=== PATIENT | female | born 1950 | race Caucasian/White ===

== ENCOUNTER 2023-04-25 09:30 | Emergency (ER) | payer MEDICARE, SELFPAY ==
--- NOTE | ~2023-04-25 | XR_ITS ---
EXAMINATION: XR WRIST, LEFT CLINICAL INFORMATION: FOOSH, pain, r/o fx COMPARISON: None available. TECHNIQUE: PA, lateral, and oblique views of the left wrist. FINDINGS: Transverse fracture of the distal radius with dorsal tilt of the articular surface (24 degrees) and loss of inclination of the radial styloid. No appreciable intra-articular extension of articular cortical step-off. No additional fractures are identified. There is abnormal alignment of the carpal bones with dorsal tilt of the lunate and volar tilt of the radius, resulting in a scapholunate angle of 85 degrees. There is radiocarpal osteoarthritis as well as osteoarthritis in the midcarpal joint, suggesting chronic carpal instability, potentially related to a chronic scapholunate ligament injury. 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 Mild to moderate osteoarthritis is also present in the MCP joints. Soft tissues are swollen diffusely. XR/XR wrist LT min 3V IMPRESSION: 1. Transverse fracture of the distal radius with dorsal tilt of the distal fragment. No appreciable intra-articular involvement. 2. 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
--- NOTE | ~2023-04-25 | XR_ITS ---
EXAMINATION: XR wrist LT 2V CLINICAL INFORMATION: Reason for Exam post reduction COMPARISON: Wrist radiographs 04/25/2023 TECHNIQUE: Two views of the wrist XR/XR wrist LT 2V FINDINGS/IMPRESSION: Overlying splinting material obscures fine osseus detail. Redemonstration of a transversely oriented fracture of the distal radius with persistent dorsal angulation of the fracture fragments. Otherwise no significant interval change from recent prior.
[2023-04-25 09:36] VITALS: BP 151/94; PULSE 82; RESP 17; TEMP 36.1; O2SAT 100; BMI 26.5
--- NOTE | 2023-04-25 09:42 | ED_ITS ---
HPI - Extremity Problem General Chief complaint: Extremity Injury, Upper Stated complaint: fall l wrist inj Time Seen by Provider: 04/25/23 09:42 Source: patient Mode of arrival: ambulatory Limitations: no limitations History of Present Illness HPI Narrative: 72 yo female with no known medical history right hand dominant here with left wrist pain after a slip and fall 30 min ago with FOOSH. No head strike or LOC. No AC therapy use. Denies numbness, tingling, weakness of the extremity. Related Data Previous Rx's Medication Instructions Recorded ibuprofen 600 mg tablet 600 mg PO Q8H PRN pain #30 tabs 04/25/23 Allergies Allergy/AdvReac Type Severity Reaction Status Date / Time Unable to Assess Allergy Verified 04/25/23 09:42 Review of Systems Review of Systems: Yes all other systems are reviewed and are negative Constitutional: Constitutional: Reports no additional constitutional complaints, Denies body ache(s), Denies chills, Denies fever(s), Denies headache(s) and Denies weakness Eyes: Eyes: Reports no additional eye complaints and Denies change in vision ENT: Reports system reviewed and no additional complaints, except as documented, Denies dizziness, Denies headache(s), Denies nasal congestion, Denies nasal discharge and Denies neck pain Cardiovascular: Cardiovascular: Reports no additional cardiovascular complaints, Denies chest pain, Denies leg edema and Denies dyspnea Respiratory: Respiratory: Reports no additional respiratory complaints, Denies cough and Denies dyspnea Gastrointestinal: Gastrointestinal: Reports no additional gastrointestinal complaints, Denies abdominal pain, Denies diarrhea, Denies nausea and Denies vomiting Genitourinary: Genitourinary: Reports no additional female genitourinary complaints and Denies urinary incontinence Musculoskeletal: Musculoskeletal: Reports no additional musculoskeletal complaints, Denies back pain, Reports arthralgias, Reports joint swelling, Reports limited range of motion, Denies neck pain, Denies numbness and Denies tingling Integumentary/Breasts: Skin/Breast: Reports system reviewed and no additional complaints, except as docu and Denies rash Neurologic: Reports system reviewed and no additional complaints, except as documented, Denies Abnormal speech present, Denies dizziness, Denies headache(s), Denies numbness, Denies tingling and Denies weakness PMFSH Past Medical History Attestation statement: The following information was validated with the patient. Source: old records reviewed and nursing notes reviewed Social History Social History Advance Directives: No Advance Directives Information Provided: Yes Physical Exam Vital Signs: Vital Signs: Last Vital Signs Temp 97.0 F 04/25/23 09:36 Pulse 82 04/25/23 09:36 Resp 17 04/25/23 09:36 BP 151/94 H 04/25/23 09:36 Pulse Ox 100 04/25/23 09:36 O2 Del Method Room Air 04/25/23 09:36 BMI result Body Mass Index 26.5 Const: General: cooperative, healthy appearing, comfortable and no acute distress Orientation/consciousness: patient oriented x3 Limitations: no limitations HEENT: Head: Yes normal to inspection Ears: hearing grossly normal bilaterally General nose exam: Normal external nose present Face and sinus: Yes normal facial exam Mouth: Normal oral and palatal mucosa present Throat: Yes posterior oropharynx normal Eyes: General: appearance normal, both eyes and all related structures Pupils: Equal, round and reactive pupils present Neck: Neck: Yes normal visual inspection Chest: Chest palpation & inspection: normal inspection of the chest Resp: Effort & Inspection: normal respiratory effort Auscultation: clear to auscultation bilaterally Cardio: Rate: regular rate Rhythm: regular rhythm Peripheral pulses: Peripheral pulses 2+ throughout GI: Inspection: Yes normal to inspection Palpation (GI): Soft to palpation and nontender Auscultation: normal bowel sounds Back/Spine/Pelvis: Thoracic/Lumbar Spine: thoracic and lumbar spine normal to inspection Skin: General skin exam: no rashes or lesions noted Neuro: General: patient oriented x3, no focal motor deficits and normal sensation to monofilament Cranial nerves: Yes Equal, round and reactive pupils present Cognition (Neuro): normal cognition Speech: No Abnormal speech present Gait exam (Neuro): Normal gait present Motor exam (neuro): 5/5 motor strength present throughout Extrem: Other: +swelling to left dorsal wrist/hand spec ifically over the distal radius and base of the 1st digit with limited active flexion/extension of the wrist d/t pain. +snuffbox tenderness. Normal hand/digit active/passive ROM. Normal distal sensation. 2+ radial/ulnar pulses. No TTP over left elbow/left shoulder with full active/passive ROM Course Course Course Narrative: the hematoma block was done at the bedside with Vi MAYES. patient tolerated well. see procedure notes for hematoma block, reduction and splint placement. Reviewed follow-up with the patient. Reviewed worrisome signs and symptoms of when to return to the emergency room. Comfortable plan for discharge home. Medications Administered Discontinued Medications Generic Name Dose Route Start Last Admin Trade Name Pratibha PRN Reason Stop Dose Admin Acetaminophen 975 mg 04/25/23 09:47 04/25/23 10:04 Acetaminophen 325 Mg Tablet PO 04/25/23 09:48 975 mg ONCE ONE Administration Ibuprofen 600 mg 04/25/23 09:47 04/25/23 10:04 Ibuprofen 600 Mg Tablet PO 04/25/23 09:48 600 mg ONCE ONE Administration Lidocaine HCl 2 ml 04/25/23 10:06 04/25/23 10:25 Lidocaine Hcl 1 % Mpf 2 Ml Vial INFILTRATI 04/25/23 10:07 2 ml ONCE ONE Administration Lidocaine HCl 2 ml 04/25/23 10:07 04/25/23 10:25 Lidocaine Hcl 1 % Mpf 2 Ml Vial INFILTRATI 04/25/23 10:08 2 ml ONCE ONE Administration Lidocaine HCl 2 ml 04/25/23 10:07 04/25/23 10:25 Lidocaine Hcl 1 % Mpf 2 Ml Vial INFILTRATI 04/25/23 10:08 2 ml ONCE ONE Administration Lidocaine HCl 2 ml 04/25/23 10:07 04/25/23 10:25 Lidocaine Hcl 1 % Mpf 2 Ml Vial INFILTRATI 04/25/23 10:08 2 ml ONCE ONE Administration Medical Decision Making Medical Decision Making MDM Narrative: 72 yo female with no known medical history right hand dominant here with left wrist pain after a slip and fall 30 min ago with FOOSH. No head strike or LOC. No AC therapy use. Denies numbness, tingling, weakness of the extremity. +swelling to left dorsal wrist/hand specifically over the distal radius and base of the 1st digit with limited active flexion/extension of the wrist d/t pain. +snuffbox tenderness. Normal hand/digit active/passive ROM. Normal distal sensation. 2+ radial/ulnar pulses. No TTP over left elbow/left shoulder with full active/passive ROM WIll check x-rays, APAP/ibuprofen for analgesia ordered. Differential Diagnosis Differential Diagnoses: The differential diagnosis associated with the presentation includes fracture, sprain, dislocation low concern for vascular injury Admission/Observation Consideration of admission/observation: Escalation of care including admission/observation considered No evidence of vascular injury, open fracture to suggest need for immediate orthopedic intervention and admission. Consult Healthcare Provider Management of the patient was discussed with: [employer] I spoke to the orthopedic SUGEY Mitchell. we discussed reduction of versus splinting. She did mention that if we were to splint the patient the patient would need surgical intervention outpatient. We discussed attempting a reduction to potentially avoid surgical intervention. This was discussed with the patient. Shared decision-making to attempt reduction and have patient follow-up in a splint with outpatient orthopedic Independent Interpretation I performed an independent interpretation of an: Plain X-Ray Interpretation: I independently reviewed the initial x-ray and the reduction x-ray and agree with the radiology report Radiology Impression Discussion of test interpretation with radiology: I have reviewed the radiologist's reading. Radiologist Impression: [address] [address] XRay Report Signed Patient: Sera Velasco MR#: [id number] : 1950 Acct:[id number] Age/Sex: 72 / F ADM Date: 04/25/23 Loc: .ED Attending Dr: Ordering Physician: Shell Michelle NP Date of Service: 04/25/23 Procedure(s): XR wrist LT min 3V Accession Number(s): [id number] cc: Physician,None ; Shell Michelle NP~ EXAMINATION: XR WRIST, LEFT CLINICAL INFORMATION: FOOSH, pain, r/o fx COMPARISON: None available. TECHNIQUE: PA, lateral, and oblique views of the left wrist. FINDINGS: Transverse fracture of the distal radius with dorsal tilt of the articular surface (24 degrees) and loss of inclination of the radial styloid. No appreciable intra-articular extension of articular cortical step-off. No additional fractures are identified. There is abnormal alignment of the carpal bones with dorsal tilt of the lunate and volar tilt of the radius, resulting in a scapholunate angle of 85 degrees. There is radiocarpal osteoarthritis as well as osteoarthritis in the midcarpal joint, suggesting chronic carpal instability, potentially related to a chronic scapholunate ligament injury. 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 Mild to moderate osteoarthritis is also present in the MCP joints. Soft tissues are swollen diffusely. XR/XR wrist LT min 3V IMPRESSION: 1. Transverse fracture of the distal radius with dorsal tilt of the distal fragment. No appreciable intra-articular involvement. 2. 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 Prescription Management I considered prescription management with: Pain Medication patient reports sufficient pain control with Motrin and Tylenol. Does not feel that she needs additional analgesia Procedures Nerve Block Nerve Block 1: Local Anesthetic: lidocaine 1% Amount of anesthesia used (mL): 6 Side: left Nerve Blocks: hematoma block Procedure Successful: Yes Patient Tolerated Procedure: well Complications: none Orthopedic Fracture Reduction Fracture #1: Time Out Performed: Yes Side: left Fracture Reduction Location: radius Analgesia: hematoma block Technique: direct manipulation and traction/counter-traction Post Reduction X-rays Demonstrate: acceptable reduction Post-reduction neuro exam: intact Post-reduction vascular exam: intact Splint Applied: Yes Patient Tolerated Procedure: well Orthopedic Splinting/Casting Injury #1: Side: left Upper Extremity Injury Location: wrist Upper Extremity Immobilizer: sugar tong splint Critical Care Time Critical Care Time Critical Care Time: Yes Total Critical Care Time: 45 Attestation: Radial fracture with impaction and angulation requiring reduction at the bedside with hematoma block and discussion with orthopedics. Discharge Plan Discharge Clinical Impression: Distal radial fracture Patient Disposition: Home, Self-Care Instructions: Arm Fracture in Adults (ED), Wrist Fracture in Adults (ED), Splint Care (ED) Additional Instructions: Call orthopedics tomorrow to be seen for a follow-up appointment Keep the splint clean and dry Use sling ONLY when up and walking around Elevate the arm Take ibuprofen as prescribed, supplement with tylenol Prescriptions: New ibuprofen 600 mg tablet 600 mg PO Q8H PRN (Reason: pain) Qty: 30 0RF Referrals: [facility] [place] Orthopedic Surgeons [Provider Group] - 5 days Interventions: ED Discharge Assessment Last Done: 04/25/23 11:12 Discharge Date/Time: 04/25/23 11:15
[2023-04-25] MEDS: Ibuprofen 600 MG TABLET PO (10:04)
[2023-04-25] MEDS: Acetaminophen 325 MG TABLET 975 MG PO (10:04)
[2023-04-25] MEDS: Lidocaine HCl 1 % MPF 2 ML VIAL INFILTRATI ×4 (10:25)
== END 2023-04-25 11:15 | disposition home or self-care (01) ==
PROVIDERS: Emergency Provider Emergency Medicine
DX: S52.502A Unspecified fracture of the lower end of left radius, initial encounter for closed fracture (principal); W01.0XXA Fall on same level from slipping, tripping and stumbling without subsequent striking against object, initial encounter; Y93.9 Activity, unspecified; Y92.9 Unspecified place or not applicable; Y99.9 Unspecified external cause status
CPT/HCPCS: 25605; 29125; 64450; 73100; 73110; 99283; 99285

== ENCOUNTER 2024-10-20 15:26 | Inpatient (IN) | payer MEDICARE, SELFPAY ==
[2024-10-20] VITALS (9 sets, daily range): BP systolic 150–170; BP diastolic 80–97; PULSE 84–107; RESP 12–18; TEMP 36.6–36.8; O2SAT 97–99; BMI 25.1
--- NOTE | ~2024-10-20 | CT_ITS ---
CLINICAL HISTORY: shortness of rbeath, elevated d dimer CT angiography chest with contrast. 3D Postprocessing. Comparison: None Findings: The heart size is normal. RV/LV ratio is normal. Unremarkable thoracic aorta and great vessels. No aneurysm. No acute pulmonary embolus. There is a sliding-type hiatal hernia. The visualized thyroid and mediastinum are otherwise unremarkable. No consolidation or effusion. The upper abdomen is unremarkable. No acute fractures. IMPRESSION: 1. No pulmonary embolus. This document has been electronically signed by: Alberto Carpio MD on 10/20/2024 19:14:06
--- NOTE | 2024-10-20 16:13 | ECG_ITS ---
Test Reason : SYNCOPY Blood Pressure : */* mmHG Vent. Rate : 99 BPM Atrial Rate : 99 BPM P-R Int : 160 ms QRS Dur : 74 ms QT Int : 354 ms P-R-T Axes : 52 -6 48 degrees QTcB Int : 454 ms Normal sinus rhythm Normal ECG No previous ECGs available Referred By: Generic ED Physician Electronically Signed By: LESIA CARDENAS MD
--- NOTE | 2024-10-20 16:15 | ED_ITS ---
HPI - General Adult General Chief complaint: Syncope Stated complaint: dizzy/ head pressure Time Seen by Provider: 10/20/24 17:00 Source: patient, RN notes reviewed and old records reviewed Mode of arrival: EMS Limitations: no limitations History of Present Illness ED Provider: Ramon JACOBS narrative: 74-year-old female who denies any known past medical history presents for evaluation of lightheadedness. Patient reports that she was very active despite her age. She reports that she was out this morning ?chopping wood, stacking it. She reports that she went on a 3 mi walk with her friend which is standard for her She reports that she then went to lunch and had some mimosas. The patient reports that she then had 4 separate episodes where she felt a head fonseca and felt like she was going to pass out. She would not have any chest of breath. She reports that when she called the ambulance due to her symptoms ?they told me my heart rate was jumping around and was as high as 160. ? The patient denies any known cardiac disease Related Data Previous Rx's ?Medication ?Instructions ?Recorded ibuprofen 600 mg tablet 600 mg PO Q8H PRN pain #30 tabs 04/25/23 Allergies Allergy/AdvReac Type Severity Reaction Status Date / Time Unable to Assess Allergy Verified 10/20/24 16:17 Review of Systems 2 Constitutional: Constitutional: Denies body ache(s), Denies chills and Denies fever(s) Eyes: Eyes: Denies blurry vision ENT: Denies vertigo and Reports dizziness Cardiovascular: Cardiovascular: Denies chest pain, Reports rapid heart rate, Reports lightheadedness, Denies radiating jaw, neck or arm pain, Reports palpitations and Denies dyspnea Respiratory: Respiratory: Denies cough and Denies dyspnea Gastrointestinal: Gastrointestinal: Denies abdominal pain, Denies nausea and Denies vomiting Musculoskeletal: Musculoskeletal: Denies back pain Integumentary/Breasts: Skin/Breast: Denies rash Neurologic: Denies vertigo and Reports dizziness Psychiatric: Psychiatric: Denies anxiety Endocrine: Endocrine: Reports palpitations PMFSH Social History Social History Smoked in Last 30 Days: No Use of substances other than those prescribed or required for medical reasons: No Advance Directives: No Advance Directives Information Provided: Yes Do you have a plan to hurt others: No Plan Physical Exam ED Vital Signs: Vital Signs - 24 hr 10/20/24 16:08 10/20/24 16:14 10/20/24 16:46 Temperature 98.2 F Pulse Rate 102 H 102 H 98 Respiratory Rate 17 18 Blood Pressure 152/84 H 152/84 H 152/89 H Pulse Oximetry 98 98 Oxygen Delivery Method Room Air Room Air 10/20/24 16:47 10/20/24 16:47 10/20/24 17:37 Temperature Pulse Rate 101 H 103 H Respiratory Rate Blood Pressure 154/96 H 154/97 H Pulse Oximetry 97 Oxygen Delivery Method Room Air 10/20/24 18:18 Temperature 97.8 F Pulse Rate 92 Respiratory Rate 18 Blood Pressure 150/87 H Pulse Oximetry 97 Oxygen Delivery Method Room Air BMI result Body Mass Index 25.1 Const General: healthy appearing, comfortable, no acute distress, alert and awake Nutritional Appearance: well nourished Orientation/consciousness: patient oriented x3 HENMT Head: Yes normocephalic and Yes atraumatic Eyes Eyelids: Yes eyelids normal Conjunctivae: conjunctivae normal Sclerae: sclerae normal Corneas: corneas normal Pupils: Equal, round and reactive pupils present EOM: EOMs intact bilaterally Neck Neck: Yes full ROM Resp Effort & Inspection: normal respiratory effort, able to speak in complete sentences, no audible wheezes and not labored Auscultation: clear to auscultation bilaterally Cardio Rate: regular rate Rhythm: regular rhythm GI Inspection: No distended Palpation (GI): Soft to palpation, not firm, nontender, no guarding and not rigid Skin General skin exam: no rashes or lesions noted and elasticity normal Neuro General: patient oriented x3 Cranial nerves: Yes Equal, round and reactive pupils present and Yes Bilaterally intact EOM present Cognition (Neuro): normal cognition Extrem Other: Moving all extremities well without any obvious deformities Course Reevaluation(s) Reevaluation #1: Medications Administered Discontinued Medications Generic Name Dose Route Start Last Admin Trade Name Freq PRN Reason Stop Dose Admin Iohexol 100 ml 10/20/24 18:54 10/20/24 18:54 Iohexol 350 Mg/Ml 100 Ml Infus..Btl IV 10/20/24 18:55 65 ml ONCE ONE Administration Medical Decision Making Medical Decision Making MDM Narrative: 74-year-old female presents for evaluation of several episodes of lightheadedness that happened this afternoon after exerting herself with physical activity. Patient reports that she was quite active at baseline and she was active this morning. She reports feeling lightheaded and having a near syncopal episode 4 separate times within a few minutes of each other around lunchtime. She reported feeling ?a head fonseca. She never had any chest pain or shortness of breath. Per the paramedical aide that responded to her call, her heart rate was atrial fibrillation and ?jumping all over the place. ? I was able to view a rhythm strip that appeared to show atrial fibrillation at a rate of 155 beats minute. On arrival to the ED, her EKG shows a sinus rhythm without ectopy or arrhythmia. Her labs are reassuring, I D-dimer was around the age adjusted cut off, I ordered a CT angiography given her arrhythmia and tachycardia, this shows no evidence of PE. The patient does drink alcohol daily, she may have some degree of alcoholic cardiomyopathy. I discussed with Cardiology, Dr. Galarza who recommends admitting the patient overnight for workup in the morning. The patient was not orthostatic Differential Diagnosis Differential Diagnoses: The differential diagnosis associated with the presentation includes Cardiac arrhythmia Lightheadedness Atrial fibrillation Orthostasis Pulmonary embolism Admission/Observation Consideration of admission/observation: Escalation of care including admission/observation considered Consult Healthcare Provider Management of the patient was discussed with: Umbrella Tipper (Cardiology, Dr. Galarza) Lab Data MDM Lab Attestation statement: I reviewed the patient's lab results. No leukocytosis or anemia. Normal platelet count. No electrolyte abnormalities warranting intervention. Troponin 3.0 which is within normal limits 10/20/24 16:31 10/20/24 16:31 Labs: Lab Results 10/20/24 10/20/24 10/20/24 Range/Units 16:31 16:35 16:50 WBC 9.3 (4.8-10.8) X10*3/uL RBC 3.88 L (4.20-5.50) X10*6/uL Hgb 13.3 (12.0-16.0) g/dl Hct 37.3 (37.0-47.0) % MCV 96.1 (80.0-98.0) fL MCH 34.3 H (27.0-33.0) pg MCHC 35.7 H (31.0-35.0) g/dl RDW 12.1 (11.0-16.0) % Plt Count 240 (160-400) X10*3/uL MPV 9.4 (9.4-12.3) fL Immature Gran % (Auto) 0.3 (0.0-0.4) % Neut % (Auto) 85.4 H (45-73) % Lymph % (Auto) 6.6 L (20-40) % Crane % (Auto) 6.6 (2-11) % Eos % (Auto) 0.4 (0-4) % Baso % (Auto) 0.7 (0-2) % Lymph # (Auto) 0.6 L (1.2-4.9) X10*3/uL Crane # (Auto) 0.6 (0.1-1.2) X10*3/uL Eos # (Auto) 0.0 (0.0-0.4) X10*3/uL Baso # (Auto) 0.1 (0.0-0.2) X10*3/uL Abs Immat Gran (auto) 0.03 (0.00-0.03) X10*3/uL Absolute Neuts (auto) 8.0 (2.0-8.3) x10*3/uL Absolute Nucleated RBC 0.000 (0.0-0.012) X10*3/uL Nucleated RBC % (auto) 0.0 (0.0-0.2) /100WBC D-Dimer High Sensitivty NG/ML Sodium 141 (135-145) mmol/L Potassium 3.9 (3.3-5.1) mmol/L Chloride 109 H (96-108) mmol/L Carbon Dioxide 24 (22-29) mmol/L Anion Gap 12 (12-20) BUN 9 (9-16) mg/dL Creatinine 0.65 (0.5-1.4) mg/dL Estim Creat Clear Calc 79.3 Estimated GFR > 60 Random Glucose 113 (60-115) mg/dL Calcium 9.5 (8.4-10.2) mg/dL Total Bilirubin 0.4 (0.0-1.0) mg/dL AST 30 (5-31) U/L ALT 18 (0-31) U/L Alkaline Phosphatase 75 (39-117) U/L Troponin I High Sens 3.0 (<3.5-17.0) ng/L Total Protein 7.2 (6.5-8.0) g/dL Albumin 3.9 (3.5-5.0) g/dL TSH 1.69 (0.32-4.0) uIU/mL Urine Color Yellow Urine Appearance Clear Urine pH 7.5 (5.0-9.0) Ur Specific [place] <= 1.005 (1.005-1.025) Urine Protein Negative (Neg-Trace) mg/dL Urine Glucose (UA) Negative (Negative) mg/dL Urine Ketones Negative (Negative) mg/dL Urine Blood Trace H (Negative) Urine Nitrite Negative (Negative) Ur Leukocyte Esterase Large (3+) H (Negative) Urine RBC 6-10 H (0-2) /HPF Urine WBC 11-20 H (0-5) /HPF Ur Squamous Epith Cells 3-5 (0-2) /HPF Urine Bacteria 4+ (None Seen) Hyaline Casts 0-2 (0-2) /LPF Ethyl Alcohol < 10 mg/dL 10/20/24 Range/Units 17:56 WBC (4.8-10.8) X10*3/uL RBC (4.20-5.50) X10*6/uL Hgb (12.0-16.0) g/dl Hct (37.0-47.0) % MCV (80.0-98.0) fL MCH (27.0-33.0) pg MCHC (31.0-35.0) g/dl RDW (11.0-16.0) % Plt Count (160-400) X10*3/uL MPV (9.4-12.3) fL Immature Gran % (Auto) (0.0-0.4) % Neut % (Auto) (45-73) % Lymph % (Auto) (20-40) % Crane % (Auto) (2-11) % Eos % (Auto) (0-4) % Baso % (Auto) (0-2) % Lymph # (Auto) (1.2-4.9) X10*3/uL Crane # (Auto) (0.1-1.2) X10*3/uL Eos # (Auto) (0.0-0.4) X10*3/uL Baso # (Auto) (0.0-0.2) X10*3/uL Abs Immat Gran (auto) (0.00-0.03) X10*3/uL Absolute Neuts (auto) (2.0-8.3) x10*3/uL Absolute Nucleated RBC (0.0-0.012) X10*3/uL Nucleated RBC % (auto) (0.0-0.2) /100WBC D-Dimer High Sensitivty 328 NG/ML Sodium (135-145) mmol/L Potassium (3.3-5.1) mmol/L Chloride (96-108) mmol/L Carbon Dioxide (22-29) mmol/L Anion Gap (12-20) BUN (9-16) mg/dL Creatinine (0.5-1.4) mg/dL Estim Creat Clear Calc Estimated GFR Random Glucose (60-115) mg/dL Calcium (8.4-10.2) mg/dL Total Bilirubin (0.0-1.0) mg/dL AST (5-31) U/L ALT (0-31) U/L Alkaline Phosphatase (39-117) U/L Troponin I High Sens (<3.5-17.0) ng/L Total Protein (6.5-8.0) g/dL Albumin (3.5-5.0) g/dL TSH (0.32-4.0) uIU/mL Urine Color Urine Appearance Urine pH (5.0-9.0) Ur Specific Buck[place] (1.005-1.025) Urine Protein (Neg-Trace) mg/dL Urine Glucose (UA) (Negative) mg/dL Urine Ketones (Negative) mg/dL Urine Blood (Negative) Urine Nitrite (Negative) Ur Leukocyte Esterase (Negative) Urine RBC (0-2) /HPF Urine WBC (0-5) /HPF Ur Squamous Epith Cells (0-2) /HPF Urine Bacteria (None Seen) Hyaline Casts (0-2) /LPF Ethyl Alcohol mg/dL Independent Interpretation I performed an independent interpretation of an: EKG and Rhythm Strip (Atrial fibrillation with a rate of 155 beats minute.) Interpretation: Normal sinus rhythm with a rate of [address] changes Radiology Impression Discussion of test interpretation with radiology: I have reviewed the radiologist's reading. Radiologist Impression: Findings: The heart size is normal. RV/LV ratio is normal. Unremarkable thoracic aorta and great vessels. No aneurysm. No acute pulmonary embolus. There is a sliding-type hiatal hernia. The visualized thyroid and mediastinum are otherwise unremarkable. No consolidation or effusion. The upper abdomen is unremarkable. No acute fractures. IMPRESSION: 1. No pulmonary embolus. This document has been electronically signed by: Alberto Carpio MD on 10/20/2024 19:14:06 Discharge Plan Discharge Clinical Impression: Cardiac arrhythmia, Episodic lightheadedness Patient Disposition: Admitted As Inpatient Prescriptions: No Action ibuprofen 600 mg tablet 600 mg PO Q8H PRN (Reason: pain) Qty: 30 0RF Print Language: Marshallese
[2024-10-20 16:35] LABS: MANUAL DIFF FLAG NO
[2024-10-20 16:36] LABS: Basophils Absolute Auto 0.1 X10*3/uL (0.0-0.2); Basophils Percent Auto 0.7 % (0-2); Eosinophils Percent Auto 0.4 % (0-4); Hematocrit 37.3 % (37.0-47.0); Hemoglobin 13.3 g/dl (12.0-16.0); Imm Gran Abs Auto 0.03 X10*3/uL (0.00-0.03); Imm Gran Pct Auto 0.3 % (0.0-0.4); Lymphocytes Absolute Auto 0.6 X10*3/uL (1.2-4.9); Lymphocytes Percent Auto 6.6 % (20-40); Mean Corpuscular HGB Conc 35.7 g/dl (31.0-35.0); Mean Corpuscular Hemoglobin 34.3 pg (27.0-33.0); Mean Corpuscular Volume 96.1 fL (80.0-98.0); Mean Platelet Volume 9.4 fL (9.4-12.3); Monocytes Absolute Auto 0.6 X10*3/uL (0.1-1.2); Monocytes Percent Auto 6.6 % (2-11); Neutrophils Percent Auto 85.4 % (45-73); Platelet Count 240 X10*3/uL (160-400); Red Blood Count 3.88 X10*6/uL (4.20-5.50); Red Cell Distribution Width 12.1 % (11.0-16.0); White Blood Count 9.3 X10*3/uL (4.8-10.8)
[2024-10-20 16:51] LABS: Alanine Aminotransferase 18 U/L (0-31); Albumin Level 3.9 g/dL (3.5-5.0); Alkaline Phosphatase 75 U/L (39-117); Anion Gap 12 (12-20); Aspartate Amino Transferase 30 U/L (5-31); Bilirubin Total 0.4 mg/dL (0.0-1.0); Blood Urea Nitrogen 9 mg/dL (9-16); Calcium 9.5 mg/dL (8.4-10.2); Carbon Dioxide 24 mmol/L (22-29); Chloride 109 mmol/L (96-108); Creatinine Clr Calc Pharmacy 79.3; Estimated Glomerular Filt Rate > 60; Glucose Random 113 mg/dL (60-115); Potassium 3.9 mmol/L (3.3-5.1); Sodium 141 mmol/L (135-145); Total Protein 7.2 g/dL (6.5-8.0)
[2024-10-20 17:01] LABS: Appearance Urine Clear; Color Urine Yellow; Glucose Urine UA Negative (Negative); Leukocyte Esterase Urine Large (3+) (Negative); Nitrite Urine Negative (Negative); PH 7.5 (5.0-9.0); Specific Gravity - Urine <= 1.005 (1.005-1.025); UMIC TRIGGER UACC YES; Urine Blood Trace (Negative); Urine Ketones Negative (Negative); Urine Protein Negative (Neg-Trace)
[2024-10-20 17:06] LABS: Bacteria Urine 4+ (None Seen); Hyaline Casts Urine 0-2 /LPF (0-2); UACC Culture Trigger YES
[2024-10-20 18:12] LABS: D Dimer High Sensitivity 328 NG/ML
[2024-10-20 18:28] LABS: TSH reflex Free T4 1.69 uIU/mL (0.32-4.0)
[2024-10-20] MEDS: iohexoL 350 MG/ML 100 ML INFUS..BTL IV (18:54)
[2024-10-20 18:58] LABS: Ethanol < 10 mg/dL
--- NOTE | 2024-10-20 19:50 | P.HPHOSP_ITS ---
History of Present Illness Date of Service: 10/20/24 Chief Complaint: Lightheadedness 74-year-old female with no significant past medical history presented to the hospital with a chief complaint of lightheadedness. Patient mentioned that she was chopping the vertex morning and after that she had a walk and after she came back she felt lightheaded and dizzy. Lasted briefly but the symptoms recurred again. And then has had at least 4 episodes of similar symptoms. Subsequently called the ambulance. When the EMS team came in her heart rate was in 150s and in AFib. Patient denies any palpitations. Denies any chest pain. Denies any shortness with the dyspnea on exertion. Denies any fever chills cough or sputum production. Denies any GI symptoms. Review of all other systems is negative except mentioned above ER course: Per ER team, patient's exam was benign, EKG shows normal sinus rhythm; troponin negative; D-dimer negative; CT chest showed no acute findings. Urinalysis abnormal consistent with UTI. Discussed with cardiology who suggested admission to the hospital for evaluation in the morning. [facility] Social History Smoked in Last 30 Days: No Use of substances other than those prescribed or required for medical reasons: No Advance Directives: No Advance Directives Information Provided: Yes Do you have a plan to hurt others: No Plan Meds Allergies Allergy/AdvReac Type Severity Reaction Status Date / Time Unable to Assess Allergy Verified 10/20/24 16:17 Active Medications: Current Medications Acetaminophen (Acetaminophen 325 Mg Tablet) 650 mg PO Q6H PRN PRN Reason: Pain, Mild 1-3,fever,headache Calcium Carbonate (Calcium Carbonate 750 Mg Tab.Chew) 750 mg PO Q4H PRN PRN Reason: Heartburn Ceftriaxone Sodium (Ceftriaxone Sodium 1 Gm Vial) 1 gm IVPUSH Q24H KISHAN Enoxaparin Sodium (Enoxaparin Sodium 40 Mg/0.4 Ml Syringe) 40 mg SUBCUT Q24H KISHAN Lactated Ringer's (Lr) 1,000 mls @ 100 mls/hr IVCONT .Q10H KISHAN Magnesium Hydroxide (Milk Of Magnesia 30 Ml Oral.Susp) 30 ml PO DAILY PRN PRN Reason: Constipation Melatonin (Melatonin 3 Mg Tablet) 6 mg PO BEDTIME PRN PRN Reason: Insomnia Sodium Chloride (0.9 % Sodium Chloride Flush 3 Ml Syringe) 3 ml IVFLUSH QSHIFT [facility] Physical Exam 2 Vital Signs and Narrative: Vital Signs: Last Vital Signs Temp 98.0 F 10/20/24 19:18 Pulse 107 H 10/20/24 19:18 Resp 12 10/20/24 19:18 BP 169/87 H 10/20/24 19:18 Pulse Ox 99 10/20/24 19:18 O2 Del Method Room Air 10/20/24 19:18 BMI result Body Mass Index 25.1 Results Labs 10/20/24 16:31 10/20/24 16:31 Labs: Laboratory Results - last 24 hr 10/20/24 10/20/24 10/20/24 16:31 16:50 17:56 MCV 96.1 MCH 34.3 H MCHC 35.7 H RDW 12.1 Plt Count 240 MPV 9.4 Immature Gran % (Auto) 0.3 Neut % (Auto) 85.4 H Lymph % (Auto) 6.6 L Ritchie % (Auto) 6.6 Eos % (Auto) 0.4 Baso % (Auto) 0.7 Lymph # (Auto) 0.6 L Ritchie # (Auto) 0.6 Eos # (Auto) 0.0 Baso # (Auto) 0.1 Abs Immat Gran (auto) 0.03 Absolute Neuts (auto) 8.0 Absolute Nucleated RBC 0.000 Nucleated RBC % (auto) 0.0 D-Dimer High Sensitivty 328 Anion Gap 12 Estim Creat Clear Calc 79.3 Estimated GFR > 60 Random Glucose 113 Calcium 9.5 Total Bilirubin 0.4 AST 30 ALT 18 Alkaline Phosphatase 75 Total Protein 7.2 Albumin 3.9 TSH 1.69 Urine Color Yellow Urine Appearance Clear Urine pH 7.5 Ur Specific [place] <= 1.005 Urine Protein Negative Urine Glucose (UA) Negative Urine Ketones Negative Urine Blood Trace H Urine Nitrite Negative Ur Leukocyte Esterase Large (3+) H Urine RBC 6-10 H Urine WBC 11-20 H Ur Squamous Epith Cells 3-5 Urine Bacteria 4+ Hyaline Casts 0-2 Ethyl Alcohol < 10 Assessment and Plan (1) Episodic lightheadedness: Status: Acute Plan 74-year-old female with no significant past medical history presented to the hospital with a chief complaint of lightheadedness. Lightheadedness: Exam nonfocal Likely in setting of new onset AFib with RVR. Improving symptomatically Fall precautions PT/OT when ready for discharge New onset AFib: EMS noted that patient heart rate was in 150s and in AFib. Patient converted back to normal sinus rhythm on arrival to the ER. Cardiology was notified Echocardiogram TSH Telemetry UTI: Continue ceftriaxone. Follow up cultures. DVT prophylaxis: Lovenox Code status: Full code Quality Stroke Does the patient have a stroke diagnosis?: No VTE Prior VTE?: No VTE Risk Level:: Medical - moderate - high VTE Device Contraindication: Treatment Not Indicated VTE Drug Contraindication: N/A - Med Ordered
[2024-10-20 20:24] LABS: Troponin-I High Sensitivity 3.4 ng/L (<3.5-17.0)
[2024-10-20] MEDS: cefTRIAXone sodium 1 GM VIAL IVPUSH (21:06)
[2024-10-20] MEDS: Lactated Ringers 1,000 ML 100 ML IVCONT (21:06)
--- NOTE | 2024-10-20 21:34 | PHA.MEDREC ---
Addendum entered by Ángel Calderon [facility] 10/20/24 21:41: MED REC CHECKED BY [facility] Original Note: Pharmacy Consult ? Medication Reconciliation Pharmacy has completed the medication reconciliation. Patient states she is not on any medications.
--- NOTE | 2024-10-20 23:02 | PC.NURSE ---
Report given to ari Ovalles.
[2024-10-21 00:32] VITALS: BP 149/79; PULSE 119; RESP 12; TEMP 36.6; O2SAT 98
--- NOTE | 2024-10-21 03:41 | PC.NURSE ---
Pt a&o, no sob or chest pt, pt oob to bathroom x2, pt has a steady gait, fluid running, pt awaiting room assignment.
[2024-10-21 04:40] VITALS: BP 141/83; PULSE 13; RESP 12; TEMP 36.7; O2SAT 97
[2024-10-21] MEDS: Lactated Ringers 1,000 ML 100 ML IVCONT (06:03)
[2024-10-21 06:21] LABS: Hemoglobin 13.1 g/dl (12.0-16.0); Mean Corpuscular HGB Conc 35.4 g/dl (31.0-35.0); Mean Corpuscular Hemoglobin 33.9 pg (27.0-33.0); Mean Corpuscular Volume 95.9 fL (80.0-98.0); Mean Platelet Volume 9.9 fL (9.4-12.3); Platelet Count 243 X10*3/uL (160-400); Red Blood Count 3.86 X10*6/uL (4.20-5.50); Red Cell Distribution Width 12.1 % (11.0-16.0); White Blood Count 4.9 X10*3/uL (4.8-10.8)
[2024-10-21 06:38] LABS: Alanine Aminotransferase 16 U/L (0-31); Albumin Level 3.7 g/dL (3.5-5.0); Alkaline Phosphatase 68 U/L (39-117); Anion Gap 11 (12-20); Aspartate Amino Transferase 27 U/L (5-31); Bilirubin Total 0.6 mg/dL (0.0-1.0); Blood Urea Nitrogen 7 mg/dL (9-16); Calcium 9.2 mg/dL (8.4-10.2); Carbon Dioxide 24 mmol/L (22-29); Chloride 109 mmol/L (96-108); Cholesterol 196 mg/dL (<200); Creatinine Clr Calc Pharmacy 80.6; Estimated Glomerular Filt Rate > 60; Glucose Random 96 mg/dL (60-115); HDL Cholesterol 69 mg/dL (>40); LDL Cholesterol Calculated 118 mg/dL (<100); Potassium 3.7 mmol/L (3.3-5.1); Sodium 140 mmol/L (135-145); Triglycerides 48 mg/dL (<150)
--- NOTE | 2024-10-21 07:00 | CA_ITS ---
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 Normal LV ejection fraction of 60 65% with impaired relaxation filling pattern 2. Trace to mild aortic regurgitation 3. Normal RV systolic pressure 4. Upper limits of normal ascending aortic size 5. No gross pericardial effusion Findings Left Ventricle Normal left ventricular size, thickness, and systolic function. The visually estimated ejection fraction is between 60-65%. Spectral Doppler is indicative of an impaired relaxation filling pattern. E/E prime ratio is between 8 and 15 consistent with indeterminate filling pressures. Right Ventricle Normal right ventricular cavity size and systolic function. Atria The left atrium is likely dilated. There is lipomatous hypertrophy of the interatrial septum. There is no evidence of interatrial shunt. The right atrium is normal in size. Aortic Valve Normal aortic valve structure and function. There is no aortic valve stenosis. There is mild aortic valve regurgitation. Mitral Valve Normal mitral valve structure and function. There is trace mitral valve regurgitation. There is no mitral valve stenosis. Pulmonic Valve The pulmonic valve is likely normal. There is trace pulmonic valve regurgitation. Tricuspid Valve Normal tricuspid valve structure. There is mild tricuspid valve regurgitation. The right ventricular systolic pressure is normal. The right ventricular systolic pressure is 21 mmHg. Normal right atrial pressure. There is no evidence of pulmonary hypertension. Great Vessels The pulmonary artery was not well visualized. Venous The inferior vena cava is normal in size and collapses greater than 50% with inspiration. Pericardium/Pleural There is no evidence of pericardial effusion. Prior Study Comparison No prior study available for comparison. Measurements 2D Linear Measurements IVSd: 1.04 0.6-0.9/0.6-1.0 cm LVIDd: 4.87 3.9-5.3/4.2-5.9 cm LVIDd Index: 2.52 2.4-3.2/2.2-3.1 cm/m2 LVIDs: 3.04 2.0-3.6 cm LVPWd: 1.02 0.7-1.1 cm Ao Root: 3.00 2.1-3.5 cm LA Diam: 4.30 2.7-3.8/3.0-4.0 cm LAIDs Index: 2.23 1.5-2.3 cm/m2 LV Mass: 226.00 67-162/88-224 g LV Mass Index: 117.10 43-95/49-115 g/m2 LVOT Diam: 2.10 3.0+(-)1.3 cm 2D Systolic Function EF 4C: 59.40 >55% Mitral Valve MV Pk E: 0.81 MV PK A: 1.02 MV Decel Time: 110.00 E/A: 0.80 E'Lateral: 8.27 E'Medial: 6.31 E/E' Med: 12.90 E/E' Lat: 9.80 PHT: 32.00 MVA PHT: 6.88 Decel Wayne: 7.38 Aortic Valve AoV Pk Dylon: 1.48 AoV Pk Grad: 9.00 LVOT LVOT Pk Dylon: 0.88 LVOT Mn Dylon: 0.57 LVOT VTI: 0.22 LVOT Pk Grad: 3.00 LVOT Mn Grad: 2.00 LVOT Diam: 2.10 LVOT Area: 3.46 Diastolic Function MV Pk E: 0.81 MV Pk A: 1.02 E/A: 0.80 E'Medial: 6.31 E/E' Med: 12.90 E' Laterial: 8.27 E/E' Lat: 9.80 Right Ventricle TAPSE (mm): 33.00 TVS' Dylon: 13.00 Tricuspid Valve TR Pk Dylon: 2.11 TR Pk Grad: 18.00 RA Press: 3.00 RVSP: 21.00 Great Vessels Aorta Ao Root-2D: 3.00 2.0-3.7 cm Ao Asc: 3.60 2.1-3.4 cm Pulmonary Valve PV Pk Dylon: 0.98 Peak PV Grad: 4.00 Updated in Other Vendor System with Status of Final Pasha Galarza MD electronically signed on 10/21/2024 3:59:42 PM with status of Final
[2024-10-21 07:16] LABS: Estimated Average Glucose 94 mg/dL; Hemoglobin A1c % 4.9 % (<6.0); Total Hemoglobin (HGBA1C) 3483.4217 umol/L
--- NOTE | 2024-10-21 07:35 | P.PNIM_ITS ---
Subjective Subjective Date of Service: 10/21/24 Physical Exam 2 Vital Signs: Vital Signs: Last Vital Signs Temp 98.1 F 10/21/24 04:40 Pulse 13 L 10/21/24 04:40 Resp 12 10/21/24 04:40 BP 141/83 H 10/21/24 04:40 Pulse Ox 97 10/21/24 04:40 O2 Del Method Room Air 10/21/24 04:40 BMI result Body Mass Index 25.1 Objective Data Active Medications Acetaminophen (Acetaminophen 325 Mg Tablet) 650 mg PO Q6H PRN PRN Reason: Pain, Mild 1-3,fever,headache Calcium Carbonate (Calcium Carbonate 750 Mg Tab.Chew) 750 mg PO Q4H PRN PRN Reason: Heartburn Ceftriaxone Sodium (Ceftriaxone Sodium 1 Gm Vial) 1 gm IVPUSH Q24H [facility] Last Admin: 10/20/24 21:06 Dose: 1 gm Documented By: LORIE Enoxaparin Sodium (Enoxaparin Sodium 40 Mg/0.4 Ml Syringe) 40 mg SUBCUT Q24H [facility] Last Admin: 10/20/24 21:06 Dose: Not Given Documented By: LORIE Non-Admin Reason: Patient Refused Lactated Ringer's (Lr) 1,000 mls @ 100 mls/hr IVCONT .Q10H [facility] Last Admin: 10/21/24 06:03 Dose: 100 mls/hr Documented By: JESICA Magnesium Hydroxide (Milk Of Magnesia 30 Ml Oral.Susp) 30 ml PO DAILY PRN PRN Reason: Constipation Melatonin (Melatonin 3 Mg Tablet) 6 mg PO BEDTIME PRN PRN Reason: Insomnia Sodium Chloride (0.9 % Sodium Chloride Flush 3 Ml Syringe) 3 ml IVFLUSH QSHIFT [facility] Last Admin: 10/21/24 06:05 Dose: Not Given Documented By: JESICA Non-Admin Reason: IV Running Labs 10/21/24 05:50 10/21/24 05:49 Labs: Laboratory Results - last 24 hr 10/20/24 10/20/24 10/20/24 16:31 16:50 17:56 MCV 96.1 MCH 34.3 H MCHC 35.7 H RDW 12.1 Plt Count 240 MPV 9.4 Immature Gran % (Auto) 0.3 Neut % (Auto) 85.4 H Lymph % (Auto) 6.6 L [place] % (Auto) 6.6 Eos % (Auto) 0.4 Baso % (Auto) 0.7 Lymph # (Auto) 0.6 L [place] # (Auto) 0.6 Eos # (Auto) 0.0 Baso # (Auto) 0.1 Abs Immat Gran (auto) 0.03 Absolute Neuts (auto) 8.0 Absolute Nucleated RBC 0.000 Nucleated RBC % (auto) 0.0 D-Dimer High Sensitivty 328 Anion Gap 12 Estim Creat Clear Calc 79.3 Estimated GFR > 60 Random Glucose 113 Estimat Average Glucose Hemoglobin A1c % Calcium 9.5 Total Bilirubin 0.4 AST 30 ALT 18 Alkaline Phosphatase 75 Total Protein 7.2 Albumin 3.9 Triglycerides Cholesterol LDL Cholesterol, Calc HDL Cholesterol TSH 1.69 Urine Color Yellow Urine Appearance Clear Urine pH 7.5 Ur Specific [place] <= 1.005 Urine Protein Negative Urine Glucose (UA) Negative Urine Ketones Negative Urine Blood Trace H Urine Nitrite Negative Ur Leukocyte Esterase Large (3+) H Urine RBC 6-10 H Urine WBC 11-20 H Ur Squamous Epith Cells 3-5 Urine Bacteria 4+ Hyaline Casts 0-2 Ethyl Alcohol < 10 10/21/24 10/21/24 05:49 05:50 MCV 95.9 MCH 33.9 H MCHC 35.4 H RDW 12.1 Plt Count 243 MPV 9.9 Immature Gran % (Auto) Neut % (Auto) Lymph % (Auto) [place] % (Auto) Eos % (Auto) Baso % (Auto) Lymph # (Auto) [place] # (Auto) Eos # (Auto) Baso # (Auto) Abs Immat Gran (auto) Absolute Neuts (auto) Absolute Nucleated RBC 0.000 Nucleated RBC % (auto) 0.0 D-Dimer High Sensitivty Anion Gap 11 L Estim Creat Clear Calc 80.6 Estimated GFR > 60 Random Glucose 96 Estimat Average Glucose 94 Hemoglobin A1c % 4.9 Calcium 9.2 Total Bilirubin 0.6 AST 27 ALT 16 Alkaline Phosphatase 68 Total Protein 7.0 Albumin 3.7 Triglycerides 48 Cholesterol 196 LDL Cholesterol, Calc 118 H HDL Cholesterol 69 TSH Urine Color Urine Appearance Urine pH Ur Specific [place] Urine Protein Urine Glucose (UA) Urine Ketones Urine Blood Urine Nitrite Ur Leukocyte Esterase Urine RBC Urine WBC Ur Squamous Epith Cells Urine Bacteria Hyaline Casts Ethyl Alcohol Assessment and Plan (1) Cardiac arrhythmia: Status: Acute (2) Episodic lightheadedness: Status: Acute (3) Afib: Status: Acute Plan 74-year-old female with no significant past medical history presented to the hospital with a chief complaint of lightheadedness. Lightheadedness: Exam nonfocal Likely in setting of new onset AFib with RVR. Improving symptomatically Fall precautions PT/OT when ready for discharge New onset AFib: EMS noted that patient heart rate was in 150s and in AFib. Patient converted back to normal sinus rhythm on arrival to the ER. Cardiology was notified Echocardiogram TSH Telemetry UTI: Continue ceftriaxone. Follow up cultures. DVT prophylaxis: Lovenox Code status: Full code Quality Stroke Does the patient have a stroke diagnosis?: No VTE Prior VTE?: No VTE Risk Level:: Medical - moderate - high VTE Device Contraindication: Treatment Not Indicated VTE Drug Contraindication: N/A - Med Ordered
--- NOTE | 2024-10-21 07:39 | P.DS_ITS ---
DS: Providers Provider Date of Service: 10/21/24 Date of admission: 10/20/24 19:35 Date of discharge: 10/21/24 Primary care physician: Unknown Physician Consults: 10/20/24 19:35 Consult to Cardiology Routine Consulting Provider[place] [facility] Reason for consultation: New Afib DS: Diagnosis Discharge Diagnosis (1) Cardiac arrhythmia: Status: Acute (2) Episodic lightheadedness: Status: Acute (3) Afib: Status: Acute DS: Summary Hospital Course Hospital Course: admission hpi Chief Complaint: Lightheadedness 74-year-old female with no significant past medical history presented to the hospital with a chief complaint of lightheadedness. Patient mentioned that she was chopping the vertex morning and after that she had a walk and after she came back she felt lightheaded and dizzy. Lasted briefly but the symptoms recurred again. And then has had at least 4 episodes of similar symptoms. Subsequently called the ambulance. When the EMS team came in her heart rate was in 150s and in AFib. Patient denies any palpitations. Denies any chest pain. Denies any shortness with the dyspnea on exertion. Denies any fever chills cough or sputum production. Denies any GI symptoms. Review of all other systems is negative except mentioned above ER course: Per ER team, patient's exam was benign, EKG shows normal sinus rhythm; troponin negative; D-dimer negative; CT chest showed no acute findings. Urinalysis abnormal consistent with UTI. Discussed with cardiology who suggested admission to the hospital for evaluation in the morning. Hospital course: The patient presented with intermittent lightheadedness and was found to be in atrial fibrillation (AFib) with rapid ventricular response (RVR), which self- terminated. The patient remains in AFib and was evaluated by cardiology, who recommended Toprolol 50 mg daily for rate control and Eliquis 5 mg BID for stroke prevention. The risks and benefits were discussed, and the patient agreed to the plan. Additionally, the patient was diagnosed with a urinary tract infection (UTI) and received ceftriaxone during hospitalization. The treatment will transition to Ceftin 250 mg BID for an additional four days. Time Attestation Discharge Coordination Time (in mins): 45 Quality: Safe Use of Opioids Does Pt have an Active Cancer Diagnosis on the Problem List?: No Quality: Stroke Does the patient have a stroke diagnosis?: No Physical Exam Vital Signs: Vital Signs: Last Vital Signs Temp 98.1 F 10/21/24 04:40 Pulse 13 L 10/21/24 04:40 Resp 12 10/21/24 04:40 BP 141/83 H 10/21/24 04:40 Pulse Ox 97 10/21/24 04:40 O2 Del Method Room Air 10/21/24 04:40 BMI result Body Mass Index 25.1 Const: Other: General: AO X 3, no acute distress Resp: CTA bilateral CVS: S1,S2,RRR GI: +BS, NT, no distention Skin: No rash Neuro: motor grossly intact Psych: appropriate affect DS: Data Data Completed and Pending Labs on day of discharge: Laboratory Results - last 24 hr 10/20/24 10/20/24 10/20/24 16:31 16:35 16:50 WBC 9.3 RBC 3.88 L Hgb 13.3 Hct 37.3 MCV 96.1 MCH 34.3 H MCHC 35.7 H RDW 12.1 Plt Count 240 MPV 9.4 Immature Gran % (Auto) 0.3 Neut % (Auto) 85.4 H Lymph % (Auto) 6.6 L [place] % (Auto) 6.6 Eos % (Auto) 0.4 Baso % (Auto) 0.7 Lymph # (Auto) 0.6 L [place] # (Auto) 0.6 Eos # (Auto) 0.0 Baso # (Auto) 0.1 Abs Immat Gran (auto) 0.03 Absolute Neuts (auto) 8.0 Absolute Nucleated RBC 0.000 Nucleated RBC % (auto) 0.0 D-Dimer High Sensitivty Sodium 141 Potassium 3.9 Chloride 109 H Carbon Dioxide 24 Anion Gap 12 BUN 9 Creatinine 0.65 Estim Creat Clear Calc 79.3 Estimated GFR > 60 Random Glucose 113 Estimat Average Glucose Hemoglobin A1c % Calcium 9.5 Total Bilirubin 0.4 AST 30 ALT 18 Alkaline Phosphatase 75 Troponin I High Sens 3.0 Total Protein 7.2 Albumin 3.9 Triglycerides Cholesterol LDL Cholesterol, Calc HDL Cholesterol TSH 1.69 Urine Color Yellow Urine Appearance Clear Urine pH 7.5 Ur Specific [place] <= 1.005 Urine Protein Negative Urine Glucose (UA) Negative Urine Ketones Negative Urine Blood Trace H Urine Nitrite Negative Ur Leukocyte Esterase Large (3+) H Urine RBC 6-10 H Urine WBC 11-20 H Ur Squamous Epith Cells 3-5 Urine Bacteria 4+ Hyaline Casts 0-2 Ethyl Alcohol < 10 10/20/24 10/20/24 10/21/24 17:56 19:51 05:49 WBC RBC Hgb Hct MCV MCH MCHC RDW Plt Count MPV Immature Gran % (Auto) Neut % (Auto) Lymph % (Auto) [place] % (Auto) Eos % (Auto) Baso % (Auto) Lymph # (Auto) [place] # (Auto) Eos # (Auto) Baso # (Auto) Abs Immat Gran (auto) Absolute Neuts (auto) Absolute Nucleated RBC Nucleated RBC % (auto) D-Dimer High Sensitivty 328 Sodium 140 Potassium 3.7 Chloride 109 H Carbon Dioxide 24 Anion Gap 11 L BUN 7 L Creatinine 0.64 Estim Creat Clear Calc 80.6 Estimated GFR > 60 Random Glucose 96 Estimat Average Glucose 94 Hemoglobin A1c % 4.9 Calcium 9.2 Total Bilirubin 0.6 AST 27 ALT 16 Alkaline Phosphatase 68 Troponin I High Sens 3.4 Total Protein 7.0 Albumin 3.7 Triglycerides 48 Cholesterol 196 LDL Cholesterol, Calc 118 H HDL Cholesterol 69 TSH Urine Color Urine Appearance Urine pH Ur Specific [place] Urine Protein Urine Glucose (UA) Urine Ketones Urine Blood Urine Nitrite Ur Leukocyte Esterase Urine RBC Urine WBC Ur Squamous Epith Cells Urine Bacteria Hyaline Casts Ethyl Alcohol 10/21/24 05:50 WBC 4.9 RBC 3.86 L Hgb 13.1 Hct 37.0 MCV 95.9 MCH 33.9 H MCHC 35.4 H RDW 12.1 Plt Count 243 MPV 9.9 Immature Gran % (Auto) Neut % (Auto) Lymph % (Auto) [place] % (Auto) Eos % (Auto) Baso % (Auto) Lymph # (Auto) [place] # (Auto) Eos # (Auto) Baso # (Auto) Abs Immat Gran (auto) Absolute Neuts (auto) Absolute Nucleated RBC 0.000 Nucleated RBC % (auto) 0.0 D-Dimer High Sensitivty Sodium Potassium Chloride Carbon Dioxide Anion Gap BUN Creatinine Estim Creat Clear Calc Estimated GFR Random Glucose Estimat Average Glucose Hemoglobin A1c % Calcium Total Bilirubin AST ALT Alkaline Phosphatase Troponin I High Sens Total Protein Albumin Triglycerides Cholesterol LDL Cholesterol, Calc HDL Cholesterol TSH Urine Color Urine Appearance Urine pH Ur Specific [place] Urine Protein Urine Glucose (UA) Urine Ketones Urine Blood Urine Nitrite Ur Leukocyte Esterase Urine RBC Urine WBC Ur Squamous Epith Cells Urine Bacteria Hyaline Casts Ethyl Alcohol Discharge Plan Discharge Anticipated Discharge Date/Time: 10/21/24 07:41 Patient Disposition: Home, Self-Care Discharge Diagnosis: New AFIB, Syncope Referrals: Physician,Unknown J [Primary Care Provider] - 1 Week Discharge Medications: New Eliquis 5 mg Tablet 5 mg PO BID Qty: 180 0RF metoprolol succinate 50 mg Tablet Extended Release 24 Hr 50 mg PO DAILY Qty: 90 0RF Protocol: Hold for SBP/HR < HOLD for SBP < : 90 HOLD for HR < : 60 cefuroxime axetil 250 mg tablet 250 mg PO BID 4 Days Qty: 8 0RF Discharge Orders: Discharge Order (Routine); Ordered 10/21/24 Ordered By: Vick Reyes Diet: Advance to usual diet Activity on Discharge: As tolerated Stand Alone Forms: Patient Portal Discharge page Print Language: Italian Care Plan Goals: Controlling atrial fibrialation, and heart rate and prevent further lightheadness Health Concerns: Atrial fibrilation with rapid ventricular response Plan of Treatment: take toprolol as directed to control heart rate take eliquis to prevent stroke follow up with Dr. Galarza, the heart doctor take Cefuroxime for UTI follow up with your primary care doctor in a week, Assessment: see above
[2024-10-21 08:05] VITALS: PULSE 66; RESP 18; O2SAT 97
--- NOTE | 2024-10-21 08:06 | PC.NURSE ---
at 0440 pt did not have a HR of 13
[2024-10-21] MEDS: Apixaban 5 MG TABLET PO (09:20)
[2024-10-21 09:25] VITALS: BP 152/86; PULSE 72; RESP 16; TEMP 36.8; O2SAT 96
--- NOTE | 2024-10-21 09:58 | P.CONCA_ITS ---
History of Present Illness History of Present Illness Date of Service: 10/21/24 [facility] reason: atrial fibrillation Chief complaint: UTI Narrative: I was consulted to see Sera in cardiology consultation today for dizziness and atrial fibrillation. Patient was a pleasant 74-year-old female. She says she is extremely active unusually can walk many miles without any issues. Yesterday she was doing her usual activity and says she was cutting wood for heating her sister which is not unusual for her and helping her neighbor as well. She then went on for a walk with her friend and walked about 3 [place] and then came back home after running a [place]. While sitting down to have a later than usual lunch she suddenly felt a wave of lightheadedness/dizziness coming over her and felt like she was going to faint. She felt this for few minutes symptoms past. Her friend was with her. She does not had another episode similar to that and the friend got concerned. The friend noticed that her face was flushed. She felt like she would pass out. We therefore decided to call the ambulance. When the ambulance came she was feeling better and she walked to the ambulance. When they hooked her up to the monitor she was noted to be tachycardic with heart rate up to 150s and was noted to be in atrial fibrillation. She had no symptoms of palpitations. She says she has never had atrial fibrillation in the past and has never had symptoms of palpitation in the past. She was never any other medical problems including hypertension, diabetes. She is currently taking no meds. No recent significant changes in health. No recent use of stimulants. No significant caffeine or alcohol intake. Since she has been here she has had no symptoms. Heart rate remained in sinus rhythm. Her troponins are negative. Her EKG showed normal sinus rhythm. Review of Systems 2 Constitutional: Constitutional: Reports no additional constitutional complaints Eyes: Eyes: Reports no additional eye complaints Cardiovascular: Cardiovascular: Denies chest pain, Denies syncope, Denies rapid heart rate, Denies leg edema, Reports lightheadedness, Denies palpitations and Denies dyspnea Respiratory: Respiratory: Reports no additional respiratory complaints and Denies dyspnea Gastrointestinal: Gastrointestinal: Reports no additional gastrointestinal complaints Genitourinary: Genitourinary: Reports no additional female genitourinary complaints Musculoskeletal: Musculoskeletal: Reports no additional musculoskeletal complaints Integumentary/Breasts: Skin/Breast: Reports system reviewed and no additional complaints, except as docu Neurologic: Reports system reviewed and no additional complaints, except as documented and Denies syncope Psychiatric: Psychiatric: Reports no additional psychiatric complaints Endocrine: Endocrine: Denies palpitations [facility] Social History Social History Smoked in Last 30 Days: No Use of substances other than those prescribed or required for medical reasons: No Advance Directives: No Advance Directives Information Provided: Yes Do you have a plan to hurt others: No Plan Meds Allergies Allergy/AdvReac Type Severity Reaction Status Date / Time Unable to Assess Allergy Verified 10/20/24 16:17 Active Medications: Current Medications Acetaminophen (Acetaminophen 325 Mg Tablet) 650 mg PO Q6H PRN PRN Reason: Pain, Mild 1-3,fever,headache Apixaban (Apixaban 5 Mg Tablet) 5 mg PO BID [facility] Last Admin: 10/21/24 09:20 Dose: 5 mg Calcium Carbonate (Calcium Carbonate 750 Mg Tab.Chew) 750 mg PO Q4H PRN PRN Reason: Heartburn Ceftriaxone Sodium (Ceftriaxone Sodium 1 Gm Vial) 1 gm IVPUSH Q24H [facility] Last Admin: 10/20/24 21:06 Dose: 1 gm Lactated Ringer's (Lr) 1,000 mls @ 100 mls/hr IVCONT .Q10H [facility] Last Admin: 10/21/24 06:03 Dose: 100 mls/hr Magnesium Hydroxide (Milk Of Magnesia 30 Ml Oral.Susp) 30 ml PO DAILY PRN PRN Reason: Constipation Melatonin (Melatonin 3 Mg Tablet) 6 mg PO BEDTIME PRN PRN Reason: Insomnia Sodium Chloride (0.9 % Sodium Chloride Flush 3 Ml Syringe) 3 ml IVFLUSH QSHIFT [facility] Last Admin: 10/21/24 09:20 Dose: Not Given Home Medications ?Medication ?Instructions ?Recorded ?Confirmed ?Last Taken ?Type No Known Home Meds 10/20/24 10/20/24 Unknown History Physical Exam 2 Vital Signs: Vital Signs: Last Vital Signs Temp 98.2 F 10/21/24 09:25 Pulse 72 10/21/24 09:25 Resp 16 10/21/24 09:25 BP 152/86 H 10/21/24 09:25 Pulse Ox 96 10/21/24 09:25 O2 Del Method Room Air 10/21/24 09:25 BMI result Body Mass Index 25.1 Const: General: cooperative, comfortable, no acute distress, alert, awake and Physically active Nutritional Appearance: average body habitus O rientation/consciousness: patient oriented x3 Limitations: no limitations HEENT: Head: Yes normocephalic and Yes atraumatic Neck: Neck: Yes trachea midline, Yes supple and Yes no JVD Resp: Effort & Inspection: normal respiratory effort Auscultation: clear to auscultation bilaterally Cardio: Jugular venous distension: no JVD Palpation: normal PMI Rate: r egular rate Rhythm: regular rhythm Heart sounds: S1 normal heart sound present, S2 normal heart sound present, no click, no gallops and no murmurs GI: Auscultation: normal bowel sounds Skin: General skin exam: no rashes or lesions noted Neuro: General: patient oriented x3 and no focal motor deficits Extrem: General: Yes no clubbing, cyanosis or edema Objective Labs and Meds 10/21/24 05:50 10/21/24 05:49 Lab results: Laboratory Results - last 24 hr 10/20/24 10/20/24 10/20/24 16:31 16:35 16:50 WBC 9.3 RBC 3.88 L Hgb 13.3 Hct 37.3 MCV 96.1 MCH 34.3 H MCHC 35.7 H RDW 12.1 Plt Count 240 MPV 9.4 Immature Gran % (Auto) 0.3 Neut % (Auto) 85.4 H Lymph % (Auto) 6.6 L [place] % (Auto) 6.6 Eos % (Auto) 0.4 Baso % (Auto) 0.7 Lymph # (Auto) 0.6 L [place] # (Auto) 0.6 Eos # (Auto) 0.0 Baso # (Auto) 0.1 Abs Immat Gran (auto) 0.03 Absolute Neuts (auto) 8.0 Absolute Nucleated RBC 0.000 Nucleated RBC % (auto) 0.0 D-Dimer High Sensitivty Sodium 141 Potassium 3.9 Chloride 109 H Carbon Dioxide 24 Anion Gap 12 BUN 9 Creatinine 0.65 Estim Creat Clear Calc 79.3 Estimated GFR > 60 Random Glucose 113 Estimat Average Glucose Hemoglobin A1c % Calcium 9.5 Total Bilirubin 0.4 AST 30 ALT 18 Alkaline Phosphatase 75 Troponin I High Sens 3.0 Total Protein 7.2 Albumin 3.9 Triglycerides Cholesterol LDL Cholesterol, Calc HDL Cholesterol TSH 1.69 Urine Color Yellow Urine Appearance Clear Urine pH 7.5 Ur Specific [place] <= 1.005 Urine Protein Negative Urine Glucose (UA) Negative Urine Ketones Negative Urine Blood Trace H Urine Nitrite Negative Ur Leukocyte Esterase Large (3+) H Urine RBC 6-10 H Urine WBC 11-20 H Ur Squamous Epith Cells 3-5 Urine Bacteria 4+ Hyaline Casts 0-2 Ethyl Alcohol < 10 10/20/24 10/20/24 10/21/24 17:56 19:51 05:49 WBC RBC Hgb Hct MCV MCH MCHC RDW Plt Count MPV Immature Gran % (Auto) Neut % (Auto) Lymph % (Auto) [place] % (Auto) Eos % (Auto) Baso % (Auto) Lymph # (Auto) [place] # (Auto) Eos # (Auto) Baso # (Auto) Abs Immat Gran (auto) Absolute Neuts (auto) Absolute Nucleated RBC Nucleated RBC % (auto) D-Dimer High Sensitivty 328 Sodium 140 Potassium 3.7 Chloride 109 H Carbon Dioxide 24 Anion Gap 11 L BUN 7 L Creatinine 0.64 Estim Creat Clear Calc 80.6 Estimated GFR > 60 Random Glucose 96 Estimat Average Glucose 94 Hemoglobin A1c % 4.9 Calcium 9.2 Total Bilirubin 0.6 AST 27 ALT 16 Alkaline Phosphatase 68 Troponin I High Sens 3.4 Total Protein 7.0 Albumin 3.7 Triglycerides 48 Cholesterol 196 LDL Cholesterol, Calc 118 H HDL Cholesterol 69 TSH Urine Color Urine Appearance Urine pH Ur Specific [place] Urine Protein Urine Glucose (UA) Urine Ketones Urine Blood Urine Nitrite Ur Leukocyte Esterase Urine RBC Urine WBC Ur Squamous Epith Cells Urine Bacteria Hyaline Casts Ethyl Alcohol 10/21/24 05:50 WBC 4.9 RBC 3.86 L Hgb 13.1 Hct 37.0 MCV 95.9 MCH 33.9 H MCHC 35.4 H RDW 12.1 Plt Count 243 MPV 9.9 Immature Gran % (Auto) Neut % (Auto) Lymph % (Auto) [place] % (Auto) Eos % (Auto) Baso % (Auto) Lymph # (Auto) [place] # (Auto) Eos # (Auto) Baso # (Auto) Abs Immat Gran (auto) Absolute Neuts (auto) Absolute Nucleated RBC 0.000 Nucleated RBC % (auto) 0.0 D-Dimer High Sensitivty Sodium Potassium Chloride Carbon Dioxide Anion Gap BUN Creatinine Estim Creat Clear Calc Estimated GFR Random Glucose Estimat Average Glucose Hemoglobin A1c % Calcium Total Bilirubin AST ALT Alkaline Phosphatase Troponin I High Sens Total Protein Albumin Triglycerides Cholesterol LDL Cholesterol, Calc HDL Cholesterol TSH Urine Color Urine Appearance Urine pH Ur Specific [place] Urine Protein Urine Glucose (UA) Urine Ketones Urine Blood Urine Nitrite Ur Leukocyte Esterase Urine RBC Urine WBC Ur Squamous Epith Cells Urine Bacteria Hyaline Casts Ethyl Alcohol Assessment and Plan (1) Paroxysmal atrial fibrillation: Status: Acute New onset paroxysmal atrial fibrillation in this elderly woman who has been pretty active and asymptomatic. She was also noted to have elevated blood pressure which is a new finding for her. She says she has never had any prior cardiovascular issues. At this point time I would consider an echocardiogram at rest. I will also consider starting on Toprol-XL 50 mg daily and Eliquis 5 mg b.i.d. for CHADSVASc score of 3. She is agreeable. I think she should probably not plan to traveled till we have further workup done. I would suggest her to have a treadmill stress test to evaluate for myocardial ischemia and a Holter monitor in a week or 2 to assess for any recurrent burden of atrial fibrillation. Management of atrial fibrillation including stroke prevention was discussed with the patient. She understands agrees. If echocardiogram is reasonably within normal limits she can be discharged home. Will follow with her as outpatient. Procedures Date of Service Date of Service: 10/21/24
[2024-10-21] MEDS: Metoprolol Succinate ER 50 MG TAB.ER.24H PO (10:30)
[2024-10-21 10:31] VITALS: BP 155/89; PULSE 73; RESP 16; TEMP 36.9; O2SAT 97
--- NOTE | 2024-10-21 15:38 | MHC.CM.PN ---
PT DC'D BEFORE I COULD MEET W/ THEM.
== END 2024-10-21 11:01 | disposition home or self-care (01) | DRG 309 ==
LOC: HO.ED 19:25 → HO.EDOVER 20:46
PROVIDERS: Physician Assistant; Admitting Provider Hospitalist; Emergency Provider Emergency Medicine; Visit Provider Internal Medicine
DX: I48.0 Paroxysmal atrial fibrillation (principal); N39.0 Urinary tract infection, site not specified; Z79.899 Other long term (current) drug therapy
CPT/HCPCS: 36415; 71275; 80053; 80061; 80307; 81001; 81003; 83036; 84443; 84484; 85025; 85027; 85379; 87086; 87088; 87186; 93005; 93306; 99285; J0696; J7120; Q9957; Q9967

== ENCOUNTER → 2024-10-20 18:15 | Outpatient (BNV) | payer MEDICARE, SELFPAY | PROVIDERS: Emergency Provider Emergency Medicine; Visit Provider Specialist | DX: R06.02 Shortness of breath (principal) | CPT/HCPCS: 71275 ==

== ENCOUNTER 2024-10-20 19:35 | Outpatient (BNV) | payer MEDICARE, SELFPAY | END 2024-10-21 07:00 | PROVIDERS: Admitting Provider Hospitalist; Emergency Provider Emergency Medicine; Visit Provider Internal Medicine Cardiovascular Disease | DX: I35.1 Nonrheumatic aortic (valve) insufficiency (principal); I36.1 Nonrheumatic tricuspid (valve) insufficiency | CPT/HCPCS: 93306 ==

== ENCOUNTER → 2024-10-20 19:35 | Outpatient (BNV) | payer MEDICARE, SELFPAY | PROVIDERS: Admitting Provider Hospitalist; Emergency Provider Emergency Medicine; Visit Provider Internal Medicine | DX: I49.9 Cardiac arrhythmia, unspecified (principal); R42 Dizziness and giddiness; I48.91 Unspecified atrial fibrillation | CPT/HCPCS: 99239 ==

== ENCOUNTER → 2024-10-20 19:35 | Outpatient (BNV) | payer MEDICARE, SELFPAY | PROVIDERS: Admitting Provider Hospitalist; Emergency Provider Emergency Medicine; Visit Provider Internal Medicine Cardiovascular Disease | DX: I48.0 Paroxysmal atrial fibrillation (principal) | CPT/HCPCS: 93010; 99222 ==

== ENCOUNTER → 2024-10-24 11:34 | Outpatient (REF) | payer MEDICARE, SELFPAY ==
--- OUTSIDE RECORDS SUMMARY | 2024-10-24 13:17 | XMS_ITS | Clinical Summary ---
Author Organization [facility] Address [address] [phone] Phone Care Team Providers Care Software Programmer Name Role Phone Unknown, Unknown Primary Care Provider Unavai lable Allergies No known active allergies Medications Medication Sig Dispensed Refills Start Date End Date Status ibuprofen (ADVIL,MOTRIN) 600 MG tablet Take 600 mg by mouth every 8 (eight) hours as needed. 04/25/2023 Active naproxen (NAPROSYN) 500 MG tablet 1 tablet as needed 02/11/2014 Act angela Active Problems No known active problems Social History Tobacco Use Types Packs/Day Years Used Date Smoking Tobacco: Never Smokeless Tobacco: Never Tobacco Cessation:Counseling Given: Not Answered Alcohol Use Standard Drinks/Week Comments Yes 0 (1 standard drink = 0.6 oz pur e alcohol) Education Answer Date Recorded Are you interested in more education? Not on terri e 04/28/2023 Are you concerned about learning? Not on file 04/28/2023 No 04/28/2023 No 04/28/2023 Digital Access Answer Date Recorded No 04/28/2023 No 04/28/2023 Reliable internet access at home? Not on file 04/28/2023 Device with a working camera? Not on file Sex and Gender Information Value Date Recorded Sex Assigned at Not on file Gender Identity Not on file Sexual Orientation Not on file Last Filed Vital Signs Vital Sign Reading Time Taken Comments Blood Pressure 132/82 02/11/2014 10:39 AM EDT Pulse 101 02/11/2014 10:39 AM EDT Temperature - - Respiratory Rate - - Oxygen Saturation - - Inhaled Oxygen Concentration - - Weight 73.2 kg (161 lb 6.4 oz) 02/11/2014 10:39 AM EDT Height 168.9 cm (5' 6.5 ) 02/11/2014 10:39 AM ED T Body Mass Index 25.66 02/11/2014 10:39 AM EDT Plan of Treatment Upcoming Encounters Date Type Department Care Team (Late st Contact Info) Description 07/11/2025 8:00 AM EST Office Visit [facility] [address] [place] [address] Shakeel Kyle MD [address] [facility], [address] [place] [address] [email or web address] Health Maintenance Due Date Last Done Comments LIPID PANEL 1950 DEPRESSION SCREENING 1962 HEPATITIS C SCREENING 1968 MAMMOGRAM 1990 COLOGUARD 1995 COLONOSCOPY 1995 COLORECTAL CANCER SCREENING 1995 FIT TEST 1995 FOBT 1995 SIGMOIDOSCOPY 1995 VIRTUAL COLONOSCOPY 1995 PNEUMOCOCCAL VACCINES (50+ years) (1 of 1 - PCV) 2000 ZOSTER VACCINES (1 of 2) 2000 OSTEOPOROSIS SCREENING INITIAL (ONE-TIME) 2015 Adult Td,Tdap Booster 04/07/2022 04/07/2012 INFLUENZA VACCINE (#1) 2024 COVID-19 VACCINE ( season) 2024 11/04/2021, 05/20/2021, 11/05/2020, Additional history exists RSV VACCINE (1 - 1-dose 75+ series) 2025 SMOKING STATUS SCREENING (Once After 26 Yrs) Completed 07/08/2023 HEPATITIS A VACCINES Aged Out No long er eligible based on patient's age to complete this topic HIB VACCINES Aged Out No longer eligi ble based on patient's age to complete this topic MENINGOCOCCAL VACCINES (ACWY) Aged Out No longer eligible based on patient's age to complete this topic Medical Devices Not on file Care Teams Software Programmer Relationship Specialty Start Date End Date Unknown, Unknown, PCP - General 04/28/23 Additional Source Comments The information contained in this document represents components of the legal health record. It is not the complete legal health record.[facility]
== END ==
LOC: HO.CARD 11:34
PROVIDERS: Visit Provider Internal Medicine Cardiovascular Disease
DX: I48.0 Paroxysmal atrial fibrillation (principal); I49.9 Cardiac arrhythmia, unspecified; R42 Dizziness and giddiness
CPT/HCPCS: 93242

== ENCOUNTER → 2024-11-29 10:50 | Outpatient (REF) | payer MEDICARE, SELFPAY ==
--- NOTE | 2024-11-29 10:52 | CA_ITS ---
Acquisition Time: 2024-11-29 11:26:43 Total Exercise Time: 00:05:01 Test Indications: Abnormal ECG AFIB Medications: ELIQUIS METOPROLOL Protocol: MONIE Max HR: 157 BPM 107% of Pred: 146 BPM Max BP: 160/90 mmHG Max Work Load: 7.0 METS Exercise stress test with exercise 5 mins 1 sec of Monie Protocol, achieving 102% MPHR, with reports of SOB, no chest pain, without any arrythmias, with normotensive response to exercise. Without EKG changes meeting criteria for ischemia. In recovery, breathing quickly resolved. Echo images obtained by tech at rest and post peak exercise. Definity contrast utilized. Test reviewed with Dr. Chinchilla. Referred By: Pasha Galarza Electronically Signed By: Carlos Enrique Corado
--- OUTSIDE RECORDS SUMMARY | 2024-11-29 12:32 | XMS_ITS | Clinical Summary ---
Author Organization [facility] Address [address] [phone] Phone Care Team Providers Care Watch Caser Name Role Phone Unknown, Unknown Primary Care [...] 07/11/2025 8:00 AM EST Office Visit [facility] [address] [place] [address] Shakeel Kyle MD [address] [facility], [address] [place] [address] [email or web address] Health Maintenance Due Date Last Done Comments LIPID PANEL 1950 DEPRESSION SCREENING 1962 HEPATITIS C SCREENING 1968 MAMMOGRAM 1990 COLOGUARD 1995 COLONOSCOPY 1995 COLORECTAL CANCER SCREENING 1995 FIT TEST 1995 FOBT 1995 SIGMOIDOSCOPY 1995 VIRTUAL COLONOSCOPY 1995 PNEUMOCOCCAL VACCINES (50+ years) (1 of 1 - PCV) 2000 ZOSTER VACCINES (1 of 2) 2000 OSTEOPOROSIS SCREENING INITIAL (ONE-TIME) 2015 Adult Td,Tdap Booster 04/07/2022 04/07/2012 COVID-19 VACCINE ( season) 2024 11/04/2021, 05/20/2021, [...] Medical Devices Not on file Care Teams Watch Caser Relationship Specialty Start Date End Date Unknown, Unknown, PCP - General 04/28/23 Additional Source Comments The information contained in this document represents components of the legal health record. It is not the complete legal health record.[facility]
== END ==
LOC: HO.CARD 10:50
PROVIDERS: Visit Provider Internal Medicine Cardiovascular Disease
DX: I48.0 Paroxysmal atrial fibrillation (principal); I49.9 Cardiac arrhythmia, unspecified; R42 Dizziness and giddiness
CPT/HCPCS: 93350; Q9957

== ENCOUNTER → 2024-11-29 10:52 | Outpatient (BNV) | payer MEDICARE, SELFPAY | DX: R06.02 Shortness of breath (principal); I48.0 Paroxysmal atrial fibrillation | CPT/HCPCS: 93016; 93018; 93350; 93352 ==

== ENCOUNTER 2024-12-02 09:24 | Outpatient (AMB) | payer MEDICARE, SELFPAY ==
--- NOTE | 2024-12-02 09:27 | MHC.OFFVIS ---
Vital Signs 12/02/24 09:30 Height 5 ft 9 in Weight 175 lb 7.807 oz BMI 25.9 BP 110/70 Blood Pressure Location Lt brachial Position Sitting Pulse 74 Pulse Source Pulse Oximeter Intake Visit Reasons: f/u after testing Intake Note: f/up-testing Cartography Technician Required: No Accompanied by: Self / Same As Patient Allergies Unable to Assess Allergy (Verified 10/20/24 16:17) Medication List - Last Reconciled 12/02/24 by NERI Arenas apixaban (Eliquis) 5 mg PO BID metoprolol succinate ER 50 mg See Protocol PO DAILY HPI HPI f/u after testing: Details: Sera is a 74-year-old female with no prior cardiac history who recently presented to [facility] with report of dizziness and was found to have new onset AFib RVR. Hypertension was newly diagnosed as well. Medication management commenced with metoprolol and Eliquis. She was treated with rate slowing medication and converted to sinus rhythm. Echocardiography indicated a possible dilated left atrium with an EF of 60-65%. outpatient Holter monitor recorded no atrial fibrillation. A exercise stress echo was negative for ischemia. She has not reported recurrent dizziness since the initial hospital admission. She is tolerating her medications without any concerns. She describes herself as being very active and has continued her usual activities. Review of Systems Const All systems reviewed & are unremarkable except as noted in HPI and below Denies chills, Denies fatigue, Denies fever(s), Denies frequent falls, Denies weakness, Denies weight gain and Denies weight loss ENT Denies dizziness Card Denies chest pain, Denies leg edema, Denies lightheadedness, Denies palpitations, Denies dyspnea and Denies dyspnea on exertion Resp Denies cough, Denies dyspnea and Denies dyspnea on exertion GI Denies hematochezia Musc Denies abnormal gait, Denies muscle weakness, Denies numbness, Denies radiating pain into limb and Denies tingling Neuro Denies abnormal gait, Denies dizziness, Denies frequent falls, Denies numbness, Denies tingling and Denies weakness Endo Denies fatigue and Denies palpitations Physical Exam Vital Signs: Last Vital Signs Pulse 74 12/02/24 09:30 BP 110/70 12/02/24 09:30 BMI result Body Mass Index 25.9 Const General: cooperative, healthy appearing, comfortable and no acute distress Orientation/consciousness: patient oriented x3 HEENT Head: Yes normal to inspection Neck Neck: Yes normal visual inspection Resp Effort & Inspection: normal respiratory effort Auscultation: clear to auscultation bilaterally, no crackles, no rales, no rhonchi and no wheezes Cardio Rate: regular rate Rhythm: regular rhythm Heart sounds: S1 normal heart sound present, S2 normal heart sound present, no gallops, no murmurs and no rubs Neuro General: patient oriented x3 Extrem General: Yes normal to inspection, No no pedal edema and No calf tenderness Psych Appearance: grossly normal Mental Status: mental status grossly normal Speech and movement: Normal speech and movement present Results Reviewed Results Reviewed: - Echocardiogram: EF 60-65%, impaired relaxation, potential left atrial dilation, right atrium normal size. - Holter Monitor: Sinus rhythm with 77 bpm, rare PACs/PVCs, no atrial fibrillation. - Exercise Stress echo: No EKG changes of ischemia, noecho evidence of ischemia, diastolic dysfunction or pulmonary hypertension. Assessment & Plan Assessment & Plan (1) Paroxysmal atrial fibrillation: Code(s): I48.0 - Paroxysmal atrial fibrillation Category: Medical Plan: New finding of paroxysmal atrial fibrillation with presenting symptom of dizziness. She was put on metoprolol XL 50 mg daily for rate/rhythm control. She was put on Eliquis for anticoagulation. CHADS-VASc score of 3. Recent Holter monitor shows sinus rhythm with rare PACs and PVCs, no AFib. Continue current management. Cardiology follow-up in 4 months, sooner if needed (2) Hypertension: Code(s): I10 - Essential (primary) hypertension Category: Medical Plan: Blood pressure goal less than 130/80. Well controlled today. Continue metoprolol. (3) Hospital discharge follow-up: Code(s): Z09 - Encounter for follow-up examination after completed treatment for conditions other than malignant neoplasm Category: Medical Plan: Discharge summary reviewed Plan Time spent on chart review, documentation, interview and assessment Patient was informed and verbally consented to the use of an ambient scribe for clinic note documentation during this visit. We discussed the diagnosis of atrial fibrillation and management strategies focused on heart rate control and stroke prevention. Metoprolol as a beta-shawna is utilized to maintain a stable rhythm, while Eliquis was prescribed in light of her CHADS VASc score to prevent stroke. The associated bleeding risks and necessary vigilance were emphasized. I highlighted the importance of managing atrial fibrillation and hypertension through consistent medication adherence and regular follow-up appointments. An educational discussion occurred regarding monitoring for potential symptoms of breakthrough atrial fibrillation and using a device like Kardiamobile for intermittent checks. Medications: Refilled apixaban (Eliquis) 5 mg PO BID 180 tabs 3RF metoprolol succinate ER 50 mg See Protocol PO DAILY 90 tabs 3RF Patient Instructions: - Continue taking metoprolol and Eliquis as prescribed. - Monitor for and report any unusual symptoms such as recurrent dizziness or chest pain. - Maintain regular follow-up appointments. - Limit caffeine intake and seek care for significant bleeding occurrences. - Consider acquiring a Kardiamobile device for periodic heart rhythm checks. - Contact medical services promptly if experiencing prolonged bleeding or stroke symptoms (e.g., face drooping, arm weakness, or slurred speech). Coding Level of Care Code Est Pt Level 4 (73677) Complex EM visit Add On G2211 Diagnoses Paroxysmal atrial fibrillation I48.0 Hypertension I10 Hospital discharge follow-up Z09 Time Spent (min) 32
[2024-12-02 09:30] VITALS: BP 110/70; PULSE 74; BMI 25.9
--- OUTSIDE RECORDS SUMMARY | 2024-12-02 09:42 | XMS_ITS | Clinical Summary ---
Author Organization [facility] Address [address] [phone] Phone Care Team Providers Care Rheumatology Nurse Name Role Phone Unknown, Unknown Primary Care [...] 07/11/2025 8:00 AM EST Office Visit [facility] [address] [place] [address] Shakeel Kyle MD [address] [facility], [address] [place] [address] [email or web address] Health Maintenance Due Date Last Done Comments [...] Medical Devices Not on file Care Teams Rheumatology Nurse Relationship Specialty Start Date End Date Unknown, Unknown, PCP - General 04/28/23 Additional Source Comments The information contained in this document represents components of the legal health record. It is not the complete legal health record.[facility]
== END 2024-12-02 09:53 | disposition home or self-care (01) ==
LOC: HO.HCS 09:24
PROVIDERS: Visit Provider Nurse Practitioner Family
DX: I48.0 Paroxysmal atrial fibrillation (principal); I10 Essential (primary) hypertension; Z09 Encounter for follow-up examination after completed treatment for conditions other than malignant neoplasm
CPT/HCPCS: 99214; G2211

== ENCOUNTER → 2024-12-02 09:24 | Outpatient (BNVA) | payer MEDICARE, SELFPAY | PROVIDERS: Visit Provider Nurse Practitioner Family | DX: I10 Essential (primary) hypertension (principal); I48.0 Paroxysmal atrial fibrillation; Z09 Encounter for follow-up examination after completed treatment for conditions other than malignant neoplasm | CPT/HCPCS: 99212 ==

== ENCOUNTER 2025-04-12 10:53 | Outpatient (AMB) | payer MEDICARE, SELFPAY ==
--- NOTE | 2025-04-12 10:54 | MHC.OFFVIS ---
Vital Signs 04/12/25 10:55 Height 5 ft 9 in Weight 171 lb 15.369 oz BMI 25.4 BP 112/72 Blood Pressure Location Lt brachial Position Sitting Pulse 65 Intake Visit Reasons: 4m follow up Intake Note: 4 month follow-up feeling good Allergies Unable to Assess Allergy (Verified 10/20/24 16:17) Medication List - Last Reconciled 04/12/25 by Pasha Galarza MD apixaban (Eliquis) 5 mg PO BID metoprolol succinate ER 50 mg See Protocol PO DAILY HPI Comments Details: Sera comes for follow-up. She says she has been doing very well from cardiac perspective. She is remaining very active and denies any symptoms exertional chest pain or shortness of breath. Denies any prolonged palpitation irregular heartbeat. Tolerating her medications well. No bleeding issues or neurologic events. Denies any heart failure symptoms including orthopnea, PND, leg edema. No lightheadedness, syncope. [facility] Medical History (Updated 04/12/25 @ 11:20 by Pasha Galarza MD) Afib Review of Systems Const Denies chills, Denies fatigue, Denies fever(s), Denies frequent falls, Denies weakness, Denies weight gain and Denies weight loss ENT Denies dizziness Card Denies chest pain, Denies leg edema, Denies lightheadedness, Denies palpitations, Denies dyspnea, Denies dyspnea on exertion, Denies orthopnea and Denies other (loss of consciousness) Resp Denies cough, Denies dyspnea and Denies dyspnea on exertion GI Denies hematochezia and Denies change in stool character Musc Denies abnormal gait, Denies muscle weakness, Denies numbness, Denies radiating pain into limb and Denies tingling Neuro Denies abnormal gait, Denies dizziness, Denies frequent falls, Denies numbness, Denies tingling and Denies weakness Endo Denies fatigue and Denies palpitations Physical Exam Vital Signs: Last Vital Signs Pulse 65 04/12/25 10:55 BP 112/72 04/12/25 10:55 BMI result Body Mass Index 25.4 Const General: cooperative, healthy appearing, comfortable and no acute distress Orientation/consciousness: patient oriented x3 HEENT Head: Yes normal to inspection Neck Neck: Yes normal visual inspection Resp Effort & Inspection: normal respiratory effort Auscultation: clear to auscultation bilaterally, no crackles, no rales, no rhonchi and no wheezes Cardio Rate: regular rate Rhythm: regular rhythm Heart sounds: S1 normal heart sound present, S2 normal heart sound present, no gallops, no murmurs and no rubs Neuro General: patient oriented x3 Extrem General: Yes normal to inspection, No no pedal edema and No calf tenderness Psych Appearance: grossly normal Mental Status: mental status grossly normal Speech and movement: Normal speech and movement present Assessment & Plan Assessment & Plan (1) Paroxysmal atrial fibrillation: Code(s): I48.0 - Paroxysmal atrial fibrillation Category: Medical Plan: Highly symptomatic paroxysmal atrial fibrillation which has remained suppressed on current therapy. He has done well with current medical therapy. CHADSVASc score of 3. Discussed thromboembolic risk and advised to continue full oral anticoagulation with Eliquis. She understands and agrees. Continue monitor renal function every 6 months. Avoidance of stimulants was discussed. Stress mitigation strategies were discussed. Continue aggressive blood pressure control. (2) Hypertension: Code(s): I10 - Essential (primary) hypertension Category: Medical Plan: Blood pressure in the past was elevated but currently on metoprolol therapy blood pressure is currently well optimized. Advised to continue metoprolol therapy. Advised to monitor blood pressure at home maintain a log. Goal blood pressure less than 130/84. Low-salt diet was advised. Encouraged to maintain high level of activity as tolerated. Will follow up in the clinic in 1 year's time, sooner PRN. Thank you for allowing me to partake in her care Coding Level of Care Code Est Pt Level 4 (03968) Complex EM visit Add On G2211 Diagnoses Paroxysmal atrial fibrillation I48.0 Hypertension I10
[2025-04-12 10:55] VITALS: BP 112/72; PULSE 65; BMI 25.4
--- OUTSIDE RECORDS SUMMARY | 2025-04-12 13:51 | XMS_ITS | Clinical Summary ---
Author Organization [facility] Address [address] [phone] Phone Care Team Providers Care Viscose Cellar Charge Hand Name Role Phone Unknown, Unknown Primary Care Provider Gray lable Allergies No known active allergies Medications ibuprofen (ADVIL,MOTRIN) 600 MG tablet Take 600 mg by mouth every 8 (eight) hours as needed. 04/25/2023 Active naproxen (NAPROSYN) 500 MG tablet 1 tablet as needed 02/11/2014 Active Active Problems No known active problems Social [...] with a working camera? Not on file Comments Unknown Sex and Gender Information Value Date Recorded Sex Assigned at Not on file Legal Sex Female 10:02 PM EDT Gender Identity Not on file Sexual Orientation [...] Description 07/11/2025 8:00 AM EST Office Visit [facility] [address] [place] [address] Shakeel Kyle MD [address] [facility], [address] [place] [address] [email or web address] Health Maintenance Due Date Last Done Comments [...] Td,Tdap Booster 04/07/2022 04/07/2012 INFLUENZA VACCINE (#1) 2025 COVID-19 VACCINE ( - 2024- season) 2025 11/04/2021, 05/20/2021, 11/05/2020, Additional history exists RSV [...] age to complete this topic MENINGOCOCCAL VACCINES (B) Aged Out N o longer eligible based on patient's age to complete this topic Medical Devices Not on file Insurance [place] [employer] SUPPLEMENT MEDICARE PART A & B [place] [employer] SUPPLEMENT MEDICARE PART A & B [employer] MED[employer] SUPPLEMENT BLUE [employer]OSS MEDEX SUPPLEMENT BLUE CROSS MEDEX SUPPLEMENT MEDICARE PART A & B Member Subscriber Plan / Payer (Ef fective 2015-Present) Name:Sera Velasco Member ID:[id number] Relation to Subscriber:Self Name:Sera Velasco Subscriber ID:[id number] Payer ID:[id number] Group ID:Not on file Type:Medicare Address: [facility] [address] [place] [id number] [employer] MEDEX SUPPLEMENT [employer] MEDEX SUPPLEMENT MEDICARE PART A & B [place] [employer] SUPPLEMENT MEDICARE PART A & B [place] [employer] SUPPLEMENT MEDICARE PART A & B Care Teams Viscose Cellar Charge Hand Relationship Specialty Start Date End Date Unknown, Unknown, PCP - General 04/28/23 Additional Source Comments The information contained in this document represents components of the legal health record. It is not the complete legal health record.[facility]
== END 2025-04-12 11:12 | disposition home or self-care (01) ==
LOC: HO.HCS 10:53
PROVIDERS: Visit Provider Internal Medicine Cardiovascular Disease
DX: I48.0 Paroxysmal atrial fibrillation (principal); I10 Essential (primary) hypertension
CPT/HCPCS: 99214; G2211

== ENCOUNTER → 2025-04-12 10:53 | Outpatient (BNVA) | payer MEDICARE, SELFPAY | PROVIDERS: Visit Provider Internal Medicine Cardiovascular Disease | DX: I48.0 Paroxysmal atrial fibrillation (principal); I10 Essential (primary) hypertension | CPT/HCPCS: 99212 ==